=== PATIENT | male | born 1955 | race Caucasian/White ===

== ENCOUNTER 2018-12-02 10:48 | Emergency (ER) | payer OTHER ==
[~2018-12-02] VITALS: Ht 167.6 cm; Wt 108.9 kg
[2018-12-02] MEDS ORDERED: LANTUS SOL100 UNIT/1 (10:53)
[2018-12-02] MEDS ORDERED: HUMALOG100 UNIT/1 (10:53)
[2018-12-02] MEDS ORDERED: LIPITOR20 MG PO (10:54)
[2018-12-02] MEDS ORDERED: COREG CR10 MG (10:54)
== END 2018-12-02 13:24 | disposition home or self-care (01) ==
LOC: ER 10:48
DX: K59.09 Other constipation (principal)